=== PATIENT | male | born 1955 | race Two or more races ===

== ENCOUNTER 2021-09-11 05:21 | Emergency (ER) | payer OTHER ==
[~2021-09-11] VITALS: Ht 188 cm; Wt 90.7 kg
[2021-09-11 06:51] LABS: Urine Bacteria NONE SEEN /hpf (None Seen); Urine Blood 1+ /uL (Negative); Urine Specific Gravity 1.001 (1.001-1.035); Urine WBC <1 /hpf (0 - 3)
[2021-09-11 07:06] LABS: Alcohol, Urine < 3.0 mg/dL (0-10); Amphetamine Screen, Urine NEGATIVE (NEGATIVE); Barbiturate Scree,Urine NEGATIVE (NEGATIVE); Benzodiazephine Screen, Urine NEGATIVE (NEGATIVE); Cannabinoid Screen, Urine POSITIVE (NEGATIVE); Cocaine Screen, Urine POSITIVE (NEGATIVE); Opiate Scree,Urine NEGATIVE (NEGATIVE); Phencyclidine Screen, Urine NEGATIVE (NEGATIVE)
[2021-09-11 08:17] LABS: Hematocrit 38.9 % (41.0-53.0); Mean Corpuscular Hemoglobin 32.7 pg (28.0-32.0); Mean Corpuscular Hgb Conc. 33.4 g/dL (32.0-36.0); Mean Corpuscular Volume 97.7 fL (80.0-100.0); Red Blood Cells 3.98 10^6/uL (4.5-5.90)
[2021-09-11 08:27] LABS: Red Cell Distribution Width 26.9 % (11.8-14.3)
[2021-09-11 08:29] LABS: Basophils % (manual) 0 (0.0-2.0); Blast Cells 0; Eosinophils % (manual) 0 (0-7); Promyelocytes % 0; Reactive Lymphocytes 0
[2021-09-11 08:33] LABS: INR 1.18 (0.9-1.15); Partial Thromboplastin Time 29.3 sec (23.6-33.0)
[2021-09-11 08:42] LABS: Calcium 8.4 mg/dL (8.5-10.1)
[2021-09-11 08:48] LABS: Albumin 3.9 g/dL (3.4-5.0); Bilirubin, Total 1.3 mg/dL (0.2-1.0); Magnesium 2.8 mg/dL (1.6-2.6); Total Protein 8.4 g/dL (6.4-8.2)
[2021-09-11 09:00] VITALS: BP 174/75
[2021-09-11] MEDS ORDERED: POTASSIUM EFFERVESENT TAB 25 MEQ PO ONE (09:00)
[2021-09-11] MEDS ORDERED: IOHEXOL 350 MG/ML 100ML IJ ONE (09:09)
[2021-09-11 09:33] LABS: Band Neutrophils % (manual) 41; Lymphocytes % (manual) 13 (10.0-50.0); Metamyelocytes % 6; Monocytes % (manual) 16 (0-12); Myelocytes % 2
[2021-09-11] MEDS ORDERED: ASPI1TAB20 PO (11:14)
[2021-09-11] MEDS ORDERED: ATO40T PO (11:14)
[2021-09-11] MEDS ORDERED: ASPirin 81 mg TAB PO ONE (11:15)
== END 2021-09-11 12:00 | disposition home or self-care (01) ==
LOC: ER 05:21 → EDBD 05:21 → ER 12:00
DX: I63.9 Cerebral infarction, unspecified (principal); I10 Essential (primary) hypertension; J45.909 Unspecified asthma, uncomplicated; Z79.82 Long term (current) use of aspirin; Z79.899 Other long term (current) drug therapy
CPT/HCPCS: 36415; 70450; 70496; 70498; 71045; 80053; 80307; 80320; 81001; 82140; 83735; 83880; 84484; 85007; 85027; 85610; 85730; 86850; 86900; 86901; 93005; 99291; Q9967